=== PATIENT | female | born 1985 | race Caucasian/White ===

== ENCOUNTER 2020-03-31 10:03 | Emergency (ER) | payer MEDICAID ==
[~2020-03-31] VITALS: Ht 167.6 cm; Wt 55.0 kg
[2020-03-31] MEDS ORDERED: MUPI22OI30 TOP (10:13)
[2020-03-31] MEDS ORDERED: IBUP-1984 PO (10:13)
[2020-03-31 10:20] VITALS: BP 156/87
== END 2020-03-31 10:22 | disposition home or self-care (01) ==
LOC: ER 10:04
DX: S01.20XA Unspecified open wound of nose, initial encounter (principal); Z88.0 Allergy status to penicillin; Z91.040 Latex allergy status; Z79.2 Long term (current) use of antibiotics; Z79.899 Other long term (current) drug therapy; X58.XXXA Exposure to other specified factors, initial encounter; Y93.89 Activity, other specified; Y92.89 Other specified places as the place of occurrence of the external cause; Y99.8 Other external cause status
CPT/HCPCS: 99283